=== PATIENT | female | born 1945 | race Caucasian/White ===

== ENCOUNTER 2020-04-16 15:22 | Inpatient (IN) | payer MEDICARE, OTHER ==
[~2020-04-16] VITALS: Ht 167.6 cm; Wt 64.0 kg
[~2020-04-16 15:22] MED LIST: AUGMENTIN 875-1 EACH PO; BUTALB-ASPIRIN1 EACH PO; CALCIUM CITRAT1 EAC7 PO; CATAPRES-TTS 20.2 MG TOP; CLONAZEPAM 1 MG1 M1 PO; COLACE100 MG PO; CORTEF10 MG PO; COUMADIN 2.5MG2.5 M1 PO; DULCOLAX5 MG PO; ENOXAPARIN100 MG/11 SUBQ; EPIPEN0.3 MG/0.1 IM; K-DUR 20 MEQ T20 MEQ PO; NASONEX17 GM NASAL; NEURONTIN 300300 M1 PO; OCUVITE TABLET1 EAC1 PO; PROTONIX40 M1 PO; SINGULAIR 10 MG10 M1 PO; SYNTHROID88 MCG PO; TYLENOL325 MG PO; VENTOLIN HFA 1818 GM INH
[2020-04-16 15:25] VITALS: BP 138/84
[2020-04-16] MEDS ORDERED: FUROSEMIDE 40 M40 MG PO (15:31)
[2020-04-16] MEDS ORDERED: SYMBICORT160 MCG/4. INH (15:31)
[2020-04-16] MEDS ORDERED: NORCO 10-325 T1 EACH PO (15:32)
[2020-04-16] MEDS ORDERED: PREGABALIN75 MG PO (15:33)
[2020-04-16] MEDS ORDERED: JANTOVEN4 MG PO (15:34)
[2020-04-16] MEDS ORDERED: LUBRICANT EYE D10 ML EA. EYE (15:35)
[2020-04-16] MEDS ORDERED: SOLU-CORTEF100 MG PO (15:36)
[2020-04-16 16:02] LABS: HEMATOCRIT 41.4 % (37.0-47.0); HEMOGLOBIN 13.7 gm/dL (12.0-15.0); MCH 31.6 pg (26.0-34.0); MCV 95.9 fL (80.0-100.0); MPV 7.2 fl. (7.2-11.1); NUCLEATED RBCS 0 /100WBC; PLATELET COUNT* 212 thou/uL (150-400); RBC 4.32 mil/uL (4.20-5.00); WBC 4.8 thou/uL (4.0-11.0)
[2020-04-16 16:10] LABS: CALCIUM 8.6 mg/dL (8.5-10.1); CREATININE 0.8 mg/dL (0.6-1.3); POTASSIUM 3.8 mmol/L (3.5-5.1)
[2020-04-16 16:12] LABS: APTT 35.9 Seconds (25.0-31.3); PROTIME 20.2 Seconds (9.20-11.50)
[2020-04-16 16:23] LABS: ALBUMIN 3.8 g/dL (3.4-5.0); CK-MB MASS 3.2 ng/mL (<0.5-3.6); MAGNESIUM 1.8 mg/dL (1.8-2.4); TOTAL BILIRUBIN 0.4 mg/dL (<0.1-1.0); TOTAL PROTEIN 6.9 g/dL (6.4-8.2)
[2020-04-16 16:40] LABS: ABSOLUTE EOSINOPHILS 0.1 thou/uL (0.0-0.7); ABSOLUTE LYMPHOCYTES 1.6 thou/uL (0.8-5.3); ABSOLUTE MONOCYTES 0.5 thou/uL (0.0-1.2); ABSOLUTE NEUTROPHILS 2.6 thou/uL (1.6-8.1); PLATELET ESTIMATE ADEQUATE
[2020-04-16 16:55] LABS: CHOLESTEROL 220 mg/dL (<200); HDL CHOLESTEROL 101 mg/dL (>40); LDL CHOLESTEROL 112 mg/dL (<100); SERUM ASSESSMENT Clear; TC:HDL 2.2 Ratio (Not establshd); TRIGLYCERIDE 35 mg/dL (<150); VLDL 7 mg/dL (<40)
[2020-04-16 18:29] LABS: URINE BILIRUBIN NEGATIVE (Negative); URINE BLOOD NEGATIVE (Negative); URINE CLARITY CLEAR; URINE COLOR YELLOW; URINE GLUCOSE-RANDOM NEGATIVE (Negative); URINE KETONES NEGATIVE (Negative); URINE LEUKOCYTES-REFLEX NEGATIVE (Negative); URINE NITRITE-REFLEX NEGATIVE (Negative); URINE PROTEIN NEGATIVE (Negative); URINE SPECIFIC GRAVITY <= 1.005 (1.005-1.030); URINE UROBILINOGEN 0.2 E.U./dl (0.2-1.0)
[2020-04-17] VITALS: BP 116/55
[2020-04-17 04:00] VITALS: BP 97/37
[2020-04-17 06:08] LABS: INR 1.7; PROTIME 17.8 Seconds (9.20-11.50)
[2020-04-17 08:00] VITALS: BP 113/55
--- NOTE | 2020-04-17 09:08 | EKG ---
[place] [address] ELECTROCARDIOGRAM REPORT Name: EMELI EARLY Room: [address] ADM IN M.R.#: [id number] Admission: 04/16/20 Attend Phys: Khadar Ray Discharge: Date of : 41 Date of Service: 04/16/20 1447 Report #: [id number] THIS REPORT FOR: //name// [facility] Test Date: 2020-04-16 Test Time: 14:47:03 Pat Name: EMELI EARLY Department: Room: [facility] Gender: F Director Child: : 1945 Requested By: Epi Arevalo Order Number: [id number] MD: Ajay Masters Measurements Intervals Elizabeth Rate: 153 P: 0 MA: QRS: 39 QRSD: 107 T: -57 QT: 305 QTc: 487 Interpretive Statements Supraventricular tachycardia Repolarization abnormality, prob rate related Compared to ECG 03/29/2017 14:57:45 Early repolarization now present Sinus rhythm no longer present Left ventricular hypertrophy no longer present T-wave abnormality no longer present Electronically Signed On 04-17-2020 9:08:15 CARDIOGRAPH OPERATOR by Ajay Masters [email or web address] <ELECTRONICALLY SIGNED> By: Pankaj Masters MD, FACC 04/17/20 0908 1447 1447 Pankaj Masters MD, FAC /EPI
--- NOTE | 2020-04-17 11:43 | CARDNUC ---
[place] [address] CARDIAC NUCLEAR IMAGING REPORT Name: EMELI EARLY Room: [address] IN [facility].#: [id number] Admission: 04/16/20 Attend Phys: Khadar Ray Discharge: Date of : 41 Date of Service: 04/17/20 1143 Report #: [id number] THIS REPORT FOR: cc: Catie Car MD, Pamela L. MD Biggs, F. Douglas MD [facility] ~ APPROVED REPORT Study performed: 04/16/2020 14:23:46 Exam: Nuclear Stress Test Indication: Chest pain radiating to jaw and neck, Palpitations. Patient Location: Out-Patient Stress Tech: Pushpa Galvan Stress Nurse: Jacquie Chery Tech:HERBERT Grimes Ht: 5 ft 3 in Wt: 141 lbs BSA: 1.67 m2 BMI: 24.97 Medical History Medical History: Chest pain radiating to jaw and neck, dyspnea, COPD, HX PE and DVT, Palpitations, LE Edema, PVD, Wheelchair, weakness, unstable gait. Medications: Lasix, Warfarin, KCl, NTG. Allergies: Multiple - See Medication/allergy list. Cardiac Risk Factors: Age, FHX of CAD, chest pain radiating to neck and jaw, Dyspnea, LE Edema, HX PE/DVT, Palpitations. Previous Cardiac Procedures: None Pretest Chest Pain Characteristics: No chest pain Exercise History: Sedentary Physical Disabilities: General weakness, unstable gait, LE Edema. Meds Held (24 hrs): NTG. Stress Test Details Stress Test: Pharmacologic stress testing performed using 0.4 mg of regadenoson per 5 mL given IV over 10 seconds. Reason for pharmacologic stress test: General weakness, unstable gait, LE Edema.. HR Resting HR: 69 bpm Max Heart Rate (APMHR): 144 bpm Max HR Achieved: 109 bpm Target HR (85% APMHR): 122 [place] [address] CARDIAC NUCLEAR IMAGING REPORT Name: EARLYEMELI Room: [address] IN [facility].#: [id number] Admission: 04/16/20 Attend Phys: Khadar Ray Discharge: Date of : 41 Date of Service: 04/17/20 1143 Report #: [id number] % of APMHR: 75 Recovery HR: 91 bpm HR response to stress: Normal HR response to stress BP Resting BP: 158/95 mmHg Max BP: 179/78 mmHg BP response to stress: Abnormal hypertensive response to stress. ECG Resting ECG: Sinus Rhythm, Anterior CT pattern Stress ECG: Sinus rhythm, anterior CT pattern ST Change: None Maximum ST Deviation: 0 mm Arrhythmia: None Recovery ECG: Sinus Rhythm, anterior CT pattern Recovery ST Change: None Recovery ST Deviation: 0 mm Recovery Arrhythmia: APCs Clinical Reason for Termination: Completed protocol Stress Symptoms: Increased headache, Sudden Sharp chest pain 10/10, increased weakness, Dyspnea. Exercise duration: 00 min 00 sec Exercise capacity: 1.00 METs Nurse Comments A 74 year old female presented for a sitting Lexiscan r/t chest pain radiating to jaw and neck. Test completed with sharp sudden chest pain 10/10. CP resolved during test. Recovery included more sharp sudden CP. Kassandra Landaverde consulted. Another EKG completed showing SVT's associated with chest pain. Patient O2 stats WNL. Per Kassandra Landaverde, patient was taken by bed to E.D. with at side. Patient feeling better with continued headache with left in E.D. Stress ECG Conclusion Non-diagnostic exercise stress due to failure to attain target HR. NM EXAM: Myocardial Perfusion REST/STRESS Imaging Protocol: Other Resting Data Rest SPECT myocardial perfusion imaging [place] [address] CARDIAC NUCLEAR IMAGING REPORT Name: EMELI EARLY Room: [address] IN M.R.#: [id number] Admission: 04/16/20 Attend Phys: Khadar Ray Discharge: Date of : 41 Date of Service: 04/17/20 1143 Report #: [id number] position 30 minutes following the intravenous injection of 9.9 mCi of Tc-99m Sestamibi. Time of rest injection: 1300 Date: 04/16/2020 The images were gated to evaluate regional wall motion and calculate left ventricular ejection fraction. Administration Route: IV Study Data At rest, the left ventricular ejection fraction was 79%.. This study is incomplete. Only resting data was obtained. Perfusion The resting study is normal. There was normal perfusion at rest. No post stress images were obtained. Images were reviewed using [employer]. Wall Motion Normal left ventricular wall motion. Nuclear Conclusion ECG Findings: non-diagnostic Clinical Findings: Suspicious for ischemia Nuclear Findings: Nondiagnostic as the study was incomplete Exercise Capacity: abnormal Left Ventricular Function: normal Risk Study: Not defined as the study was incomplete Nondiagnostic study as the study was incomplete. Note the patient had severe chest pain with minimal exercise and note the patient had paroxysmal supraventricular tachycardia following the study. <Conclusion> Non-diagnostic exercise stress due to failure to attain target HR. <ELECTRONICALLY SIGNED> By: aPnkaj Masters MD, FACC 04/17/20 1143 1143 1143 Pankaj Masters MD, FACC /INF
--- NOTE | 2020-04-17 14:47 | 2DMMODE ---
[place] [address] 2 D/M-MODE ECHOCARDIOGRAM Name: EMELI EARLY Room: [address] IN [facility]#: [id number] Admission: 04/16/20 Attend Phys: Khadar Ray Discharge: Date of : 41 Date of Service: 04/17/20 1446 Report #: [id number] THIS REPORT FOR: cc: Catie Car MD, Pamela L. MD Biggs, F. Douglas MD [facility] ~ APPROVED REPORT Study performed: 04/17/2020 13:13:15 EXAM: Comprehensive 2D, Doppler, and color-flow Echocardiogram Patient Location: In-Patient Room #: [facility] Status: routine BSA: 1.78 HR: 72 bpm BP: 113/55 mmHg Rhythm: NSR Other Information Study Quality: Good Indications Tachycardia Chest Pain 2D Dimensions IVSd: 9.90 (7-11mm) LVOT Diam: 20.79 (18-24mm) LVDd: 33.21 mm PWd: 9.58 (7-11mm) Ascending Ao: 27.87 (22-36mm) LVDs: 21.16 (25-40mm) Aortic Root: 36.23 mm Volumes Left Atrial Volume (Systole) LA ESV Index: 15.00 mL/m2 Aortic Valve AoV Peak Toni.: 1.31 m/s AO Peak Gr.: 6.84 mmHg LVOT Max P.94 mmHg AO Mean Gr.: 3.62 mmHg LVOT Mean P.59 mmHg LVOT Max V: 1.41 m/s AO V2 VTI: 25.14 cm LVOT Mean V: 0.85 m/s RHYS (VTI): 4.04 cm2 LVOT V1 VTI: 29.91 [place] [address] 2 D/M-MODE ECHOCARDIOGRAM Name: EMELI EARLY Room: [address] IN .R.#: [id number] Admission: 04/16/20 Attend Phys: Khadar Ray Discharge: Date of : 41 Date of Service: 04/17/20 1446 Report #: [id number] Mitral Valve E/A Ratio: 0.95 MV Decel. Time: 271.42 ms MV E Max Toni.: 0.81 m/s MV PHT: 78.71 ms MVA (PHT): 2.79 cm2 TDI E/Lateral E': 9.00 E/Medial E': 10.13 Medial E' Toni.: 0.08 m/s Lateral E' Toni.: 0.09 m/s Pulmonary Valve PV Peak Toni.: 0.87 m/s PV Peak Gr.: 3.05 mmHg Tricuspid Valve RAP Estimate: 5.00 mmHg TR Peak Gr.: 15.55 mmHg RVSP: 20.00 mmHg PA Pressure: 20.00 mmHg Left Ventricle The left ventricle is normal size. There is normal LV segmental wall motion. There is normal left ventricular wall thickness. Left ventricular systolic function is normal. The left ventricular ejection fraction is within the normal range. LVEF is 65-70%. Grade I - abnormal relaxation pattern. Right Ventricle The right ventricle is normal size. The right ventricular systolic function is normal. Atria The left atrium size is normal. The right atrium size is normal. Aortic Valve The aortic valve is normal in structure. Trace aortic regurgitation. There is no aortic valvular stenosis. Mitral Valve The mitral valve is normal in structure. There is no mitral valve regurgitation noted. No evidence of mitral valve stenosis. Tricuspid Valve The tricuspid valve is normal in structure[place] [address] 2 D/M-MODE ECHOCARDIOGRAM Name: EMELI EARLY Room: [address] IN [facility]#: [id number] Admission: 04/16/20 Attend Phys: Khadar Ray Discharge: Date of : 41 Date of Service: 04/17/20 1446 Report #: [id number] regurgitation. No pulmonary hypertension. Pulmonic Valve The pulmonary valve is normal in structure. Mild pulmonic regurgitation. Great Vessels The aortic root is normal in size. IVC is normal in size and collapses >50% with inspiration. Pericardium There is no pericardial effusion. <Conclusion> LVEF is 65-70%. Grade I - abnormal relaxation pattern. There is normal left ventricular wall thickness. The left ventricle is normal size. There is normal LV segmental wall motion. The aortic valve is normal in structure. Trace aortic regurgitation. There is no aortic valvular stenosis. There is no LV outflow tract gradient. There is no mitral valve regurgitation noted. Trace tricuspid regurgitation. No pulmonary hypertension. Mild pulmonic regurgitation. <ELECTRONICALLY SIGNED> By: Pankaj Masters MD, FACC 04/17/20 1446 1446 1446 Pankaj Masters MD, FACC /INF
--- NOTE | 2020-04-17 15:40 | EKG ---
[place] [address] ELECTROCARDIOGRAM REPORT Name: EMELI EARLY Room: [address] ADM IN M.R.#: [id number] Admission: 04/16/20 Attend Phys: Khadar Ray Discharge: Date of : 41 Date of Service: 04/16/20 1517 Report #: [id number] THIS REPORT FOR: //name// [facility] Test Date: 2020-04-16 Test Time: 15:17:01 Pat Name: EMELI EARLY Department: Room: [facility] Gender: F Battery Tester: [place] : 1945 Requested By: Garcia Santillan Order Number: [id number] MD: Ajay Masters Measurements Intervals Bradley Rate: 87 P: 40 AL: 216 QRS: 0 QRSD: 101 T: 1 QT: 381 QTc: 459 Interpretive Statements Sinus rhythm Borderline prolonged AL interval Abnormal R-wave progression, early transition Borderline T abnormalities, inferior leads Baseline wander in lead(s) I,II,aVR,aVF Compared to ECG 04/16/2020 14:47:03 T-wave abnormality now present Supraventricular tachycardia no longer present Early repolarization no longer present Electronically Signed On 04-17-2020 15:40:23 ICE HANDLER by Ajay Masters [email or web address] <ELECTRONICALLY SIGNED> By: Pankaj Masters MD, [facility] 04/17/20 1540 16 151 Pankaj Masters MD, [facility] /EPI
[2020-04-17 16:44] VITALS: BP 113/63
--- NOTE | 2020-04-17 17:13 | EXE ---
[place] [address] STRESS ECHOCARDIOGRAM Name: EMELI EARLY Room: [address] ADM IN M.R.#: [id number] Admission: 04/16/20 Attend Phys: Khadar Ray Discharge: Date of : 41 Date of Service: 04/17/20 1713 Report #: [id number] THIS REPORT FOR: cc: Catie Car MD, Pamela L. MD Holkins,Epi Suarez MD [facility] ~ APPROVED REPORT Study performed: 04/17/2020 16:10:30 Exam: Dobutamine Stress Echo Indication: Chest pain , Dyspnea Patient Location: In-Patient Stress Nurse: Ciara Lopez RN Room #: 210 Supervising Physician: Epi Arevalo MD Status: routine Ht: 5 ft 6 in Rhythm: NSR Medical History Medications: kDur, Lasix, Warfarin, NTG Cardiac Risk Factors: FHX of CAD, age, PVD Procedure The patient underwent a Pharmacological Stress Test using Dobutamine. Blood pressure, heart rate, and EKG were monitored. An Echocardiogram was performed by dentures lab technician in four stages in quad fashion. At peak stress, four selected images were obtained and placed side by side with resting images for comparison. Stress Test Details Stress Test: Pharmacological Stress Test using Dobutamine. Reason for pharmacologic stress test: physical limitation. HR Resting HR: 84 bpm Max Heart Rate (APMHR): 144 bpm Max HR Achieved: 138 bpm Target HR (85% APMHR): 122 bpm % of APMHR: 95 Recovery HR: 97 bpm HR response to stress: Normal [place] [address] STRESS ECHOCARDIOGRAM Name: EMELI EARLY Room: [address]#: [id number] Admission: 04/16/20 Attend Phys: Khadar Ray Discharge: Date of : 41 Date of Service: 04/17/20 1713 Report #: [id number] Resting BP: 124/76 mmHg Max BP: 130/65 mmHg Recovery BP: 108/56 mmHg BP response to stress: Normal blood pressure response to stress. ECG Resting ECG: sinus rhythm, minor nonspecific st-t changes ST Change: No ischemic st-t changes Arrhythmia: rare pac's and pvc's Recovery ECG: No ischemic st=t changes Clinical Reason for Termination: Completed protocol Stress Symptoms: Chest pain Pre-Stress Echo The resting Echocardiogram showed normal left ventricular contractility with an estimated Ejection Fraction of about 60-65%. Normal wall motion in all segments on baseline images. Post-Stress Echo The stress Echocardiogram showed normal left ventricular contractility with an estimated Ejection Fraction of about >70%. Normal augmentation of wall motion in all segments on post stress images. Conclusion Clinical Response: Indeterminant Stress ECG Response: Non-ischemic Stress Echo Images: Non-ischemic Other Information Study Quality: Good <ELECTRONICALLY SIGNED> By: Epi Arevalo MD, FACC 04/17/201712 12 12 Epi Arevalo MD, FACC /INF
[2020-04-18] VITALS: BP 104/57
[2020-04-18 03:56] LABS: INR 1.3; PROTIME 13.4 Seconds (9.20-11.50)
[2020-04-18 04:00] VITALS: BP 103/53
[2020-04-18 04:27] LABS: HEMATOCRIT 38.9 % (37.0-47.0); HEMOGLOBIN 12.9 gm/dL (12.0-15.0); MCH 31.7 pg (26.0-34.0); MCHC 33.1 g/dL (28.0-37.0); MCV 95.9 fL (80.0-100.0); RBC 4.05 mil/uL (4.20-5.00); RDW-CV 13.5 % (10.5-14.5)
[2020-04-18 04:54] LABS: CALCIUM 8.3 mg/dL (8.5-10.1); CREATININE 0.9 mg/dL (0.6-1.3); MAGNESIUM 1.9 mg/dL (1.8-2.4); POTASSIUM 3.8 mmol/L (3.5-5.1)
[2020-04-18 07:30] VITALS: BP 133/61
[2020-04-18] MEDS ORDERED: FLECAINIDE ACET50 M1 PO (08:45)
[2020-04-18 11:00] VITALS: BP 102/68
[2020-04-18 11:02] VITALS: BP 133/61
== END 2020-04-18 12:00 | disposition home or self-care (01) | DRG 392 ==
LOC: M.2W 16:27 → M.TBA-ER 16:27 → M.2W 22:00
PROVIDERS: Family Medicine; Internal Medicine; Registered Nurse; ADMIT Internal Medicine; ATTEND Internal Medicine
DX: K21.9 Gastro-esophageal reflux disease without esophagitis (principal); I47.1 Supraventricular tachycardia; E87.1 Hypo-osmolality and hyponatremia; I20.0 Unstable angina; D68.59 Other primary thrombophilia; K22.4 Dyskinesia of esophagus; J45.909 Unspecified asthma, uncomplicated; E03.9 Hypothyroidism, unspecified; G89.29 Other chronic pain; I10 Essential (primary) hypertension; I73.9 Peripheral vascular disease, unspecified; J44.9 Chronic obstructive pulmonary disease, unspecified; N31.9 Neuromuscular dysfunction of bladder, unspecified; Z20.828 Contact with and (suspected) exposure to other viral communicable diseases; Z90.49 Acquired absence of other specified parts of digestive tract; Z90.710 Acquired absence of both cervix and uterus; Z86.718 Personal history of other venous thrombosis and embolism; Z79.01 Long term (current) use of anticoagulants; Z79.899 Other long term (current) drug therapy; Z88.2 Allergy status to sulfonamides; Z88.1 Allergy status to other antibiotic agents; Z88.8 Allergy status to other drugs, medicaments and biological substances